=== PATIENT | male | born 1985 | race Caucasian/White ===

== ENCOUNTER 2023-02-22 19:45 | Emergency (ER) | payer BC, MEDICAID ==
[2023-02-22] MEDS ORDERED: Diphtheria,Pertussis(Acell),Tetanus Vaccine 0.5 ML Syringe IM ONE (19:57)
[2023-02-22] MEDS ORDERED: ceFAZolin 1 GM Vial IM ONE (19:57)
[2023-02-22] MEDS ORDERED: Lidocaine 1% 5 ML VIAL INJECT ONE (20:05)
[2023-02-22] MEDS ORDERED: Bacitracin/Neomycin/Polymyxin B Oint 28.4 GM Tube TOP ONE (20:06)
[2023-02-22] MEDS ORDERED: Lidocaine 1% 5 ML VIAL ONE (20:21)
== END 2023-02-22 22:14 | disposition home or self-care (01) ==
LOC: DL.ED 19:45
DX: S61.213A Laceration without foreign body of left middle finger without damage to nail, initial encounter (principal); S61.211A Laceration without foreign body of left index finger without damage to nail, initial encounter; R55 Syncope and collapse; Z23 Encounter for immunization; W26.8XXA Contact with other sharp object(s), not elsewhere classified, initial encounter
CPT/HCPCS: 12002; 73130; 90471; 90715; 96372; 99283; A9270; J0690; J3490